=== PATIENT | male | born 1985 | race Caucasian/White ===

== ENCOUNTER 2021-11-22 02:19 | Emergency (ER) | payer MEDICAID, OTHER | END 2021-11-22 03:00 | disposition left against medical advice (07) | LOC: ER 02:38 | DX: R50.9 Fever, unspecified (principal); Z53.21 Procedure and treatment not carried out due to patient leaving prior to being seen by health care provider ==

== ENCOUNTER 2022-07-16 09:20 | Emergency (ER) | payer MEDICAID ==
[~2022-07-16] VITALS: Ht 180.3 cm; Wt 118.2 kg
[2022-07-16 10:34] VITALS: BP 142/87
[2022-07-16] MEDS ORDERED: DexAMETHasone SOD PHOS 10MG/1ML VIAL INJ IM ONE (10:45)
[2022-07-16] MEDS ORDERED: IBUP800T26 PO (12:27)
== END 2022-07-16 12:29 | disposition home or self-care (01) ==
LOC: ER 09:20
DX: J02.8 Acute pharyngitis due to other specified organisms (principal); H92.01 Otalgia, right ear; E66.01 Morbid (severe) obesity due to excess calories; Z68.36 Body mass index [BMI] 36.0-36.9, adult
CPT/HCPCS: 87070; 87880; 96372; 99283; J1100